=== PATIENT | female | born 1960 | race Caucasian/White ===

== ENCOUNTER 2019-09-15 10:18 | Outpatient (CLI) | payer OTHER, SELFPAY ==
--- NOTE | ~2019-09-15 | XR_ITS ---
EXAMINATION: XR nasal bones min 3V DATE: 09/15/2019 10:49 INDICATION: Nose injury and pain. TECHNIQUE: 3 views of the nasal bones were obtained. COMPARISON: None. FINDINGS: Bone alignment is normal. There are nondisplaced transverse fractures of the nasal bones. T he nasal septum is at midline. IMPRESSION: 1. Nondisplaced transverse fractures of the nasal bones. Reviewed, dictated and finalized at location E.
== END 2019-09-15 10:19 | disposition home or self-care (01) ==
PROVIDERS: PCP Internal Medicine; Visit Provider Internal Medicine
DX: S02.2XXA Fracture of nasal bones, initial encounter for closed fracture (principal)
CPT/HCPCS: 70160

== ENCOUNTER 2020-02-01 08:26 | Outpatient (CLI) | payer OTHER, SELFPAY ==
--- NOTE | ~2020-02-01 | MM_ITS ---
EXAMINATION: MM screening [facility] BI w darren HISTORY: Screening TECHNIQUE: Craniocaudal and mediolateral oblique 3-D tomosynthesis images were obtained and synthetic 2-D images were generated. CAD analysis was submitted and interpreted. COMPARISON: Comparison to multiple prior studies sequentially, with oldest reviewed study dated 11/24. BREAST PARENCHYMAL COMPOSITION: The breasts are heterogeneously dense, which may obscure small masses . FINDINGS: There is no evidence of suspicious mass, calcification, or architectural distortion to sugg est malignancy in either breast. There has been no suspicious interval change. IMPRESSION: 1. No mammographic evidence of malignancy. 2. Recommend routine screening mammography in one year. BI-RADS Category 1: Negative Reviewed, dictated and finalized at location A.
== END 2020-02-01 08:27 | disposition home or self-care (01) ==
LOC: CHSIMG 08:28
PROVIDERS: PCP Internal Medicine; Visit Provider Internal Medicine
DX: Z12.31 Encounter for screening mammogram for malignant neoplasm of breast (principal)
CPT/HCPCS: 77063; 77067

== ENCOUNTER 2020-04-07 07:37 | Outpatient (CLI) | payer OTHER, SELFPAY ==
--- NOTE | ~2020-04-07 | US_ITS ---
EXAMINATION: US retroperitoneal duplex ltd DATE: 04/07/2020 11:43 INDICATION: Renal hypertension TECHNIQUE: Multiple grayscale, color Doppler, and pulsed Doppler images of the kidneys and renal kalyn janny were obtained. COMPARISON: None. FINDINGS: The aorta peak systolic velocity is 68 cm/s. The right renal artery peak systolic velocity is 176 cm/ s in the proximal segment, 157 cm/s in the mid segment, and 219 cm/s in the distal segment. The left renal artery peak systolic velocity is 95 cm/s in the proximal segment, 82 cm/s in the mid segment, a nd 78 cm/s in the distal segment. Bilateral renal veins are patent with normal venous waveforms. IMPRESSION: 1. Elevated systolic velocities in the right renal artery consistent with a >50-60% stenosis. Reviewed, dictated and finalized at location A. MENT PROCESSING SPECIALIST IMPRESSION: 1. Elevated systolic velocities in the right renal artery consistent with a >5 0-60% stenosis.
--- NOTE | ~2020-04-07 | US_ITS ---
EXAMINATION: US abdomen complete DATE: 04/07/2020 08:52 INDICATION: Epigastric abdominal pain. TECHNIQUE: Multiple grayscale and Doppler ultrasound images of the abdomen were obtained. COMPARISON: None FINDINGS: The visualized portions of the head, body, and tail of the pancreas are normal. There are c ysts in the liver measuring up to 2.5 cm. There is normal flow in main portal vein. The inferior vena cava is normal. Abdominal aorta is normal in caliber. The gallbladder is normal in size. No gallston es or gallbladder wall thickening. There was a positive sonographic Rodriguez sign. The common duct is n ormal and measures 4 mm. Right kidney measures 16.3 x 7.9 x 9.8 cm. Left kidney measures 18.8 x 6.9 x 8.5 cm. There are numerous cysts in the kidneys, some with low level echoes, consistent with hemorrh agic cysts. There is mild splenomegaly measuring 13.1 cm. IMPRESSION: 1. Polycystic kidney disease. 2. Normal gallbladder. No etiology for the positive sonographic Rodriguez sign. 3. Mild splenomegaly. Reviewed, dictated and finalized at location B. RITY OPERATIONS ANALYST
== END 2020-04-07 07:38 | disposition home or self-care (01) ==
LOC: CHSIMG 07:38
PROVIDERS: PCP Internal Medicine; Visit Provider Internal Medicine
DX: R10.13 Epigastric pain (principal); R50.9 Fever, unspecified; I10 Essential (primary) hypertension
CPT/HCPCS: 76700; 93976

== ENCOUNTER 2020-08-09 08:05 | Outpatient (CLI) | payer OTHER, SELFPAY ==
--- NOTE | ~2020-08-09 | CT_ITS ---
EXAMINATION: CT abdomen pelvis w con DATE: 08/09/2020 08:46 INDICATION: Generalized abdominal pain. Nausea. TECHNIQUE: Computed tomography (CT) of the abdomen and pelvis was performed with 100 mL Omnipaque 350 intravenous contrast. Automated exposure control and iterative reconstruction technique were employe d. The dose-length product was 201.25 mGy-cm. COMPARISON: Ultrasound 04/07/2020 FINDINGS: The visualized portions of the lung bases demonstrate minimal atelectasis. No pleural effus ion. The heart size is normal. No pericardial effusion. There are innumerable cysts in the liver bernadine uring up to 3.2 cm. There are some dystrophic calcifications in the liver. There are innumerable cyst s in the kidneys measuring up to 5.4 cm on the left. A 4 mm calcification in right kidney may be a pa renchymal calcification. The spleen, pancreas, and adrenal glands are normal. There are no dilated lo ops of bowel. The appendix is not visualized. There are no pathologically enlarged lymph nodes. There is trace pelvic ascites. There is mild lumbar spondylosis. IMPRESSION: 1. Polycystic kidney disease. Reviewed, dictated and finalized at location A.
[2020-08-09 08:25] LABS: Estimated Glomerular Filt Rate 39
== END 2020-08-09 08:06 | disposition home or self-care (01) ==
LOC: CHSIMG 08:07
PROVIDERS: PCP Internal Medicine; Visit Provider Internal Medicine
DX: R10.9 Unspecified abdominal pain (principal); R11.0 Nausea
CPT/HCPCS: 74177; Q9967

== ENCOUNTER 2021-02-02 08:56 | Outpatient (CLI) | payer OTHER, SELFPAY ==
--- NOTE | ~2021-02-02 | MM_ITS ---
EXAMINATION: MM screening [facility] BI w darren HISTORY: Screening mammogram TECHNIQUE: Craniocaudal and mediolateral oblique 3-D tomosynthesis images were obtained and synthetic 2-D images were generated. CAD analysis was submitted and interpreted. COMPARISON: 02/01/2020, 01/27/2019, 01/20/2018 BREAST PARENCHYMAL COMPOSITION: The breasts are heterogeneously dense, which may obscure small masses . FINDINGS: There is no evidence of suspicious mass, calcification, or architectural distortion to sugg est malignancy in either breast. There has been no suspicious interval change. IMPRESSION: 1. No mammographic evidence of malignancy. 2. Recommend routine screening mammography in one year. BI-RADS Category 1: Negative Reviewed, dictated and finalized at location A.
== END 2021-02-02 08:57 | disposition home or self-care (01) ==
LOC: CHSIMG 08:58
PROVIDERS: PCP Internal Medicine; Visit Provider Internal Medicine
DX: Z12.31 Encounter for screening mammogram for malignant neoplasm of breast (principal)
CPT/HCPCS: 77063; 77067

== ENCOUNTER 2022-02-05 07:51 | Outpatient (CLI) | payer OTHER, SELFPAY ==
--- NOTE | ~2022-02-05 | DEXA_ITS ---
Bone Density Report Name: ALBERTO HARRIS Age: 61 Sex: Female Ethnicity: White Date of : 1960 Indication: postmenopausal; screening for osteoporosis; height loss; end stage renal disease; hysterectomy; Referring Provider: Luci Monterroso Study: Bone densitometry was performed. Exam Date: February 05, 2022 Accession number: [id number] Bone Density: Region BMD T-score Z-score Classification AP Spine(L1, L2, L3) 0.979 -0.4 1.0 Normal Femoral Neck (Left) 0.840 -0.1 1.2 Normal Total Hip (Left) 0.998 0.5 1.4 Normal Femoral Neck (Right) 0.879 0.3 1.5 Normal Total Hip (Right) 0.962 0.2 1.1 Normal Femoral Neck Mean 0.860 0.1 1.4 Normal Total Hip Mean 0.980 0.3 1.2 Normal World Health Organization criteria for BMD impression classify patients as: Normal (T-score at or above -1.0), Osteopenia (T-score between -1.0 and -2.5), or Osteoporosis (T-score at or below -2.5). 10-year Fracture Risk: FRAX not reported because: All T-scores for Spine Total, Hip Total, Femoral Neck at or above -1.0 Clinical Information Provided by Patient: Has the following medical conditions: End stage renal disease, Hysterectomy Patient maximum height was 64 Menopause Age: 40 Does not regularly consume dairy products Drinks caffeinated beverages Onset of menses at age 13 Number of children 3 Impression: The patient has normal bone mass. Discussion: BONE DENSITY IS ABOVE THE MINIMUM DESIRABLE LEVEL AT ALL SKELETAL SITES TESTED. This patient?s bone mineral density is above the minimum desirable level (T-score -1.0 or better) at all sites measured. The patient should follow a healthful lifestyle (good nutrition with adequate calcium and vitamin D, and appropriate weight-bearing exercise). Follow-Up: Consider repeating this study in 5 years or sooner if there is some new clinical indication. Reported by: Dr. Stephen Hdz on 02/05/2022 8:24:00 AM. Reviewed, dictated and finalized at location A. [facility]
--- NOTE | ~2022-02-05 | MM_ITS ---
EXAMINATION: MM screening [facility]io BI w darren HISTORY: Screening TECHNIQUE: Craniocaudal and mediolateral oblique 3-D tomosynthesis images were obtained and synthetic 2-D images were generated. CAD analysis was submitted and interpreted. COMPARISON: Comparison to multiple prior studies sequentially, with oldest reviewed study dated 12/07. BREAST PARENCHYMAL COMPOSITION: The breasts are heterogeneously dense, which may obscure small masses . FINDINGS: There is no evidence of suspicious mass, calcification, or architectural distortion to sugg est malignancy in either breast. There has been no suspicious interval change. IMPRESSION: 1. No mammographic evidence of malignancy. 2. Recommend routine screening mammography in one year. BI-RADS Category 1: Negative Reviewed, dictated and finalized at location A.
== END 2022-02-05 07:52 | disposition home or self-care (01) ==
LOC: CHSIMG 07:53
PROVIDERS: PCP Internal Medicine; Visit Provider Internal Medicine
DX: Z12.31 Encounter for screening mammogram for malignant neoplasm of breast (principal); M81.0 Age-related osteoporosis without current pathological fracture
CPT/HCPCS: 77063; 77067; 77080

== ENCOUNTER 2023-02-08 12:04 | Outpatient (CLI) | payer OTHER, SELFPAY ==
--- NOTE | ~2023-02-08 | MM_ITS ---
EXAMINATION: MM screening antonio BI w darren HISTORY: Screening mammogram TECHNIQUE: Craniocaudal and mediolateral oblique 3-D tomosynthesis images were obtained and synthetic 2-D images were generated. CAD analysis was submitted and interpreted. COMPARISON: 02/05/2022, 02/02/2021, 02/01/2020 bilateral screening mammogram examinations BREAST PARENCHYMAL COMPOSITION: The breasts are heterogeneously dense, which may obscure small masses . FINDINGS: There is a biopsy marker in each breast; history of prior bilateral benign breast biopsies. There is no evidence of suspicious mass, calcification, or architectural distortion to suggest malig miquel in either breast. There has been no suspicious interval change. IMPRESSION: 1. No mammographic evidence of malignancy. 2. Recommend routine screening mammography in one year. BI-RADS Category 1: Negative Reviewed, dictated and finalized at location A.
== END 2023-02-08 12:05 | disposition home or self-care (01) ==
LOC: CHSIMG 12:06
PROVIDERS: PCP Internal Medicine; Visit Provider Internal Medicine
DX: Z12.31 Encounter for screening mammogram for malignant neoplasm of breast (principal)
CPT/HCPCS: 77063; 77067

== ENCOUNTER 2023-08-02 12:33 | Outpatient (CLI) | payer OTHER, SELFPAY | END 2023-08-02 12:34 | disposition home or self-care (01) | LOC: ANHAUDASC 12:34 | PROVIDERS: PCP Internal Medicine; Visit Provider Otolaryngology | DX: H90.0 Conductive hearing loss, bilateral (principal); H93.A3 Pulsatile tinnitus, bilateral; H65.493 Other chronic nonsuppurative otitis media, bilateral | CPT/HCPCS: 92557; 92567 ==

== ENCOUNTER 2023-08-29 09:45 | Outpatient (CLI) | payer OTHER, SELFPAY ==
--- NOTE | 2023-10-07 08:59 | WPDHOLTEREM ---
Holter/Event Monitor Holter/Event Monitor Date of procedure: 08/29/23 Holter/Event Procedure: Event Monitor Indications: Palpitations Conclusion: 1. 28 days event monitor between 08/29/23-09/27/23. There are 16 available transmissions for analysis. 2. Underlying rhythm is sinus rhythm. HR range 50-114 bpm; average 63 bpm. 3. No premature supraventricular complexes. No supraventricular tachycardia. 4. There are occasional premature ventricular complexes. No ventricular tachycardia. 5. No significant pauses greater than 2 seconds. 6. Patient reports 1 episode of symptom other than listed which demonstrate sinus rhythm at 63 bpm.
== END 2023-08-29 09:46 | disposition home or self-care (01) ==
LOC: CHSCARD 09:48
PROVIDERS: PCP Internal Medicine; Visit Provider Internal Medicine
DX: R00.2 Palpitations (principal)
CPT/HCPCS: 93270

== ENCOUNTER 2023-10-14 09:46 | Outpatient (CLI) | payer OTHER, SELFPAY ==
[2023-10-14 10:56] LABS: Anion Gap 6 mmol/L (4-12); Blood Urea Nitrogen 23 mg/dL (7-17); Calcium 9.5 mg/dL (8.4-10.2); Carbon Dioxide 28 mmol/L (22-30); Chloride 102 mmol/L (98-107); Estimated Glomerular Filt Rate 46; Glucose 98 mg/dL (65-110); Potassium 4.1 mmol/L (3.4-5.0); Sodium 136 mmol/L (137-145)
== END 2023-10-14 09:47 | disposition home or self-care (01) ==
PROVIDERS: Anesthesiology; PCP Internal Medicine; Visit Provider Otolaryngology
DX: Z01.818 Encounter for other preprocedural examination (principal); Z79.899 Other long term (current) drug therapy
CPT/HCPCS: 36415; 80048

== ENCOUNTER 2023-10-18 00:14 | Day surgery (SDC) | payer OTHER, SELFPAY ==
[2023-10-09 14:37] VITALS: BMI 23.2
--- NOTE | 2023-10-09 15:03 | SUR.PREOP ---
Report to the Outpatient Waiting Room, entrance under the green pavilion located off [facility], at time 0600 on date 10/18/2023. Planned Procedure Time: 0800. Time changes happen often and if your time is changed the preop area will call you the afternoon before. - You and your visitor will be asked to self-screen and do not enter if you have any COVID symptoms. - A mask is optional within the hospital at this time. Patients may have clear liquids (water, carbonated beverages, clear teas, apple juice) until 3 hours prior to surgery with a maximum of 20 ounces. - No food from midnight until time of surgery - Infants may have breast milk until 4 hours before surgery, formula 6 hours prior to surgery. - Children will be allowed to drink immediately following surgery. If applicable, please bring a bottle or sippy cup to assist with drinking. Juice, water, soda, and popsicles are readily available. For infants on formula, please bring formula the day of surgery. Pacifiers are allowed. Take the following medications with a SIP of water the morning of surgery: Norvasc DO NOT STOP ANY OF YOUR OTHER PRESCRIPTION MEDICATIONS PRIOR TO SURGERY ?EXCEPT THE FOLLOWING Medications to discontinue per physician NA Please no make-up, nail samoan, hairspray, perfume, deodorant, or body powder the day of surgery. No jewelry (including any body piercings) or valuables the day of surgery, leave them at home. Please take a shower or bath the night before, or the morning of, surgery with an antibacterial soap. Wear comfortable, loose fitting clothing. Children are encouraged to wear pajamas. - Jewelry must be removed prior to entering the operating room. Rings and piercings that are not removed may be cut off. - The hospital will not accept responsibility for valuables. - Please leave all valuables, including medications, at home the day of surgery. If you are going home after surgery, a licensed rear load truck driver must drive you home. - NO public transportation without another adult if you receive anesthesia. - We recommend that an adult stay with you for 24 hours following discharge. - We also recommend that you do not drive, make important decision, drink alcoholic beverages, or take any drugs that were not prescribed by your health care provider for at least 24 hours after your discharge time. For Pediatric surgeries, we recommend two adults accompany the child home. Follow any additional instructions given to you from your surgeon. If you or anyone in your household have experienced Covid symptoms in the past week, please notify your surgeon or the nurse liaison at the phone number below for possible testing. Telephone instructions given to ____Patient and asked if any additional questions and then verbalized understanding. Patient advised to call surgeon office or pre surgery nurse liaison [phone] if any additional questions.
--- NOTE | 2023-10-17 07:47 | PM.IMHP ---
H&P: HPI History of Present Illness Date/Time: 10/17/23 07:47 Chief Complaint: Chronic otitis media Narrative: planned surgical procedure Review of Systems Review of Systems: All systems reviewed & are unremarkable except as noted in HPI and below [facility] Family History Family History Father Heart disease Mother Hypertension Sibling Hypertension Other Hypertension Social History Social History Smoking status: Never smoker Alcohol intake: former Substance use: never Substance use type: does not use Do You Feel Safe in your Home?: Yes Lack of Transportation: No Lack of Food: Never True Current Housing: I Have Housing Concerned About Future Housing: No Difficulty Paying Gas/Electric Bills: No Difficulty Paying for Meds: No Currently Unemployed: No Education: Decline to Answer Difficulty w/ Childcare or Family Care: No Living arrangements: with family Spiritual care concerns: No Meds Home Medications and Allergies Home Medications Medication Instructions Recorded Confirmed Type amlodipine 5 mg tablet 5 mg PO DAILY 07/16/23 10/09/23 History bisoprolol fumarate 5 mg tablet 5 mg PO DAILY 07/16/23 10/09/23 History fosinopril 40 mg tablet 40 mg PO DAILY 08/27/23 10/09/23 History amlodipine 2.5 mg tablet 2.5 mg PO PRN PRN Hypertension 10/09/23 10/09/23 History furosemide 20 mg tablet 20 mg PO DAILY 10/09/23 10/09/23 History potassium chloride 10 mEq 10 meq PO DAILY 10/09/23 10/09/23 History tablet,extended release Allergies Allergy/AdvReac Type Severity Reaction Status Date / Time No Known Allergies Allergy Verified 10/09/23 14:33 Exam Narrative: fluid both sides Assessment and Plan Assessment and plan (1) Chronic otitis media with effusion: Code(s): H65.499 - Other chronic nonsuppurative otitis media, unspecified ear Status: Acute Assessment and Plan: plan or bilateral myringotomy tube insertion would just collar buttons. Risks discussed bleeding infection damage to surrounding structures need further procedures failure to resolve symptoms persistent otorrhea possible need for referral do neuro hospitalist nocturnist physician. 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 Patient voiced understanding these risks and agreed. Also discussed damage any structures of the clavicle by myself damage to any structure in during mask ventilation and oral and insertion of LMA by Anesthesia
[2023-10-18] VITALS (8 sets, daily range): BP systolic 108–146; BP diastolic 56–84; PULSE 53–70; RESP 12–18; TEMP 36.2–36.5; O2SAT 95–100
--- NOTE | 2023-10-18 05:56 | ECG_ITS ---
Test Date: 2023-10-18 06:42:57 Measurements Intervals [place] Rate: 55 P: 26 TN: 198 QRS: 36 QRSD: 85 T: 36 QT: 407 QTc: 390 Interpretive Statements SINUS BRADYCARDIA OTHERWISE NORMAL ECG No previous ECG available for comparison Electronically Signed On 10-18-2023 10:57:33 CDT by Ion Ewing M.D.
--- NOTE | 2023-10-18 06:46 | P.PNAN_ITS ---
Anes - Initial Pre Proc Eval Procedure: Operation Date: 10/18/23 07:30 Proposed Procedures p Bilateral Myringotomy, Insertion Of Tubes - Merlin Reddy MD Date/Time: 10/18/23 06:46 Surgeon: Merlin Reddy MD Pre Op Diagnosis: chronic otitis media Patient Data Age: 63 Gender: F Height: 1.63 m Weight: 61.36 kg Allergies Allergy/AdvReac Type Severity Reaction Status Date / Time No Known Allergies Allergy Verified 10/09/23 14:33 Home Medications Medication Instructions Recorded Confirmed Type amlodipine 5 mg tablet 5 mg PO DAILY 07/16/23 10/09/23 History bisoprolol fumarate 5 mg tablet 5 mg PO DAILY 07/16/23 10/09/23 History fosinopril 40 mg tablet 40 mg PO DAILY 08/27/23 10/09/23 History amlodipine 2.5 mg tablet 2.5 mg PO PRN PRN Hypertension 10/09/23 10/09/23 History furosemide 20 mg tablet 20 mg PO DAILY 10/09/23 10/09/23 History potassium chloride 10 mEq 10 meq PO DAILY 10/09/23 10/09/23 History tablet,extended release Patient hx anesthesia problems: none Family hx anesthesia problems: none Results Review: All pre-operative results and documents have been reviewed as part of the pre- operative evaluation. [facility] Family History Family History Father Heart disease Mother Hypertension Sibling Hypertension Other Hypertension Social History Social History Smoking status: Never smoker Alcohol intake: former Substance use: never Substance use type: does not use Do You Feel Safe in your Home?: Yes Lack of Transportation: No Lack of Food: Never True Current Housing: I Have Housing Concerned About Future Housing: No Difficulty Paying Gas/Electric Bills: No Difficulty Paying for Meds: No Currently Unemployed: No Education: Decline to Answer Difficulty w/ Childcare or Family Care: No Living arrangements: with family Spiritual care concerns: No Anes - Eval Final PreProcedure Day of Procedure 10/18/23 06:46 Patient weight: normal Heart: regular rate and rhythm Lungs: clear to auscultation Airway: Mallampati scale class II Neurological: alert and oriented Last oral intake: >/= 8 hours ASA classification: II Emergent: no Anesthetic plan: proceed Anesthesia type and monitoring: general LMA and standard monitoring Results Review: All pre-operative results and documents have been reviewed as part of the pre- operative evaluation. HTN, pt walks daily approx 3 miles. EKG NSR, SB. Informed Consent: The patient's anesthetic plan and its attendant risks and benefits were discussed with the patient/family/POA. Questions were solicited and answers provided to the satisfaction of the patient/family/POA.
[2023-10-18] MEDS: LACTATED RINGERS 1,000 ML 30 ML IV CONT (06:50)
--- NOTE | 2023-10-18 07:14 | WPDHPUPDATE1 ---
History and Physical Update Update Date/Time: 10/18/23 07:14 History and Physical has been reviewed, including an updated exam of the patient. There are NO changes in the patient's condition. Risks, benefits, and alternatives have been discussed and questions answered. Patient agrees to proceed with procedure.
[2023-10-18] MEDS: CIPROFLOXACIN HCL 0.3% OP SOLN 2.5 ML BTL 4 DROP EACH EAR (07:29)
[2023-10-18] MEDS: OXYMETAZOLINE HCL 0.05% NAS 15 ML BTL (*BKC) 1 SPRAY NASAL (07:41)
--- NOTE | 2023-10-18 07:57 | P.OP_ITS ---
Procedure Note - Detailed Date of Procedure 10/18/23 Pre-op Diagnosis chronic otitis media Post-op Diagnosis Same Procedure Performed Bilateral myringotomy tube insertion Surgeon Merlin Reddy MD Anesthesia General Indications see above Findings left-sided moderate amount of fluid difficult to insert a lot of myringosclerosis had to make 2 incisions in the tympanic membrane tube placed successfully several drops of blood on the left side right-sided normal ins ertion no fluid aerated middle ear Description of Procedure patient identified consent verified preop. Patient brought operating. Time- out performed. General anesthesia induced LMA secured. Patient prepped draped position. Procedure confirmed. Second time-out performed. [place] microscope brought on the field very narrow EAC cerumen removed right-sided myringotomy made aerated middle ear collar-button tube placed collar button tube placed drops placed. Left-sided viewed cerumen removed even narrower EAC. Had to dilate with a pediatric speculum up to a small adult size bleed 2. Initial myringotomy made in the anterior-inferior quadrant difficult to make a complete myringotomy given the degree of myringosclerosis which was less evident prior to myringotomy. Decision made to perform 2nd myringotomy posteriorly myringotomy made tube inserted. Patient tolerated the procedure well blood loss about 1 cc. Afrin was placed intraoperative. Piece of cotton was also used to catch any blood. The cotton was inadvertently left in the ear canal and removed in PACU successfully using a pediatric endoscope. I polyp GIs profusely to the . No adverse consequences from the very small piece of cotton that was in the ear canal. The ear canal looked really good postoperatively as well. And tube. Patient tolerated the procedure well no complications. Estimated Blood Loss 1 Drains No Packing No Pathology Yes Complications No immediate complications Condition Stable Disposition PACU [facility] Billing Surgery - Charge Forward: Surgery Billing
[2023-10-18] MEDS: fentaNYL CITRATE INJ (*CRX) 100 MCG/2 ML VIAL 25 MCG IV PUSH (08:29)
[2023-10-18] MEDS: oxyCODONE HCL (*CRX) 5 MG TAB IR PO (09:25)
== END 2023-10-18 10:00 | disposition home or self-care (01) ==
PROVIDERS: PCP Internal Medicine; Visit Provider Otolaryngology
PROC: (CPT 69436; principal; 2023-10-18 07:30)
DX: H65.493 Other chronic nonsuppurative otitis media, bilateral (principal); Z82.49 Family history of ischemic heart disease and other diseases of the circulatory system
CPT/HCPCS: 69436; 36415; 80048; 93005; A9270; J1100; J2250; J2405; J2704; J3010; J7120

== ENCOUNTER 2024-02-11 11:37 | Outpatient (CLI) | payer OTHER, SELFPAY ==
--- NOTE | ~2024-02-11 | MM_ITS ---
EXAMINATION: MM screening [facility] BI w darren HISTORY: Screening TECHNIQUE: Craniocaudal and mediolateral oblique 3-D tomosynthesis images were obtained and synthetic 2-D images were generated. CAD analysis was submitted and interpreted. COMPARISON: Comparison to multiple prior studies sequentially, with oldest reviewed study dated 01/20. BREAST PARENCHYMAL COMPOSITION: Dense: The breasts are heterogeneously dense, which may obscure small masses FINDINGS: There is no evidence of suspicious mass, calcification, or architectural distortion to sugg est malignancy in either breast. There has been no suspicious interval change. IMPRESSION: 1. No mammographic evidence of malignancy. 2. Recommend routine screening mammography in one year. BI-RADS Category 1: Negative Reviewed, dictated and finalized at location B.
== END 2024-02-11 11:38 | disposition home or self-care (01) ==
LOC: CHSIMG 11:38
PROVIDERS: PCP Internal Medicine; Visit Provider Internal Medicine
DX: Z12.31 Encounter for screening mammogram for malignant neoplasm of breast (principal)
CPT/HCPCS: 77063; 77067

== ENCOUNTER 2025-02-02 09:40 | Outpatient (CLI) | payer OTHER, SELFPAY ==
--- NOTE | ~2025-02-02 | MM_ITS ---
EXAMINATION: MM screening antonio BI w darren HISTORY: Screening TECHNIQUE: Craniocaudal and mediolateral oblique 3-D tomosynthesis images were obtained and synthetic 2-D images were generated. CAD analysis was submitted and interpreted. COMPARISON: Comparison to multiple prior studies sequentially, with oldest reviewed study dated , 01/27/2019 BREAST PARENCHYMAL COMPOSITION: The breasts are heterogeneously dense, which may obscure small masses. FINDINGS: There is no evidence of suspicious mass, calcification, or architectural distortion to suggest malignancy in either breast. IMPRESSION: 1. No mammographic evidence of malignancy. 2. Recommend routine screening mammography in one year. BI-RADS Category 1: Negative Reviewed, dictated and finalized at location B.
--- NOTE | ~2025-02-02 | DEXA_ITS ---
Bone Density Report Name: ALBERTO HARRIS Age: 64 Sex: Female Ethnicity: White Date of : 1960 Indication: postmenopausal; screening for osteoporosis; end stage renal disease; hysterectomy; Referring Provider: Luci Monterroso Study: Bone densitometry was performed. Exam Date: February 02, 2025 Accession number: [id number] Bone Density: Region BMD T-score Z-score Classification AP Spine(L1, L2, L3) 0.959 -0.5 1.0 Normal Femoral Neck (Left) 0.833 -0.1 1.3 Normal Total Hip (Left) 1.063 1.0 2.1 Normal Femoral Neck (Right) 0.843 -0.1 1.4 Normal Total Hip (Right) 1.017 0.6 1.7 Normal Femoral Neck Mean 0.838 -0.1 1.3 Normal Total Hip Mean 1.040 0.8 1.9 Normal World Health Organization criteria for BMD impression classify patients as: Normal (T-score at or above -1.0), Osteopenia (T-score between -1.0 and -2.5), or Osteoporosis (T-score at or below -2.5). 10-year Fracture Risk: FRAX not reported because: All T-scores for Spine Total, Hip Total, Femoral Neck at or above -1.0 Previous Exams: Region Exam Age BMD T-score BMD Change BMD Change Date g/cm2 vs Baseline vs Previous AP Spine (L1-L3) 02/02/2025 64 0.959 -0.5 -0.021 (-2.1%) -0.021 (-2.1%) 02/05/2022 61 0.979 -0.4 Total Hip(Left) 02/02/2025 64 1.063 1.0 0.064 (6.5%)* 0.064 (6.5%)* 02/05/2022 61 0.998 0.5 Total Hip(Right) 02/02/2025 64 1.017 0.6 0.056 (5.8%)* 0.056 (5.8%)* 02/05/2022 61 0.962 0.2 *Denotes significance at 95% confidence level, LSC for AP Spine = 0.022 g/cm2, LSC for Total Hip = 0.027 g/cm2 Clinical Information Provided by Patient: Has the following medical conditions: End stage renal disease, Hysterectomy Patient maximum height was 64.5 Menopause Age: 40 Drinks caffeinated beverages Onset of menses at age 13 Number of children 3 Impression: The patient has normal bone mass. No significant bone loss was observed. Discussion: BONE DENSITY IS ABOVE THE MINIMUM DESIRABLE LEVEL AT ALL SKELETAL SITES TESTED. This patient?s bone mineral density is above the minimum desirable level (T-score -1.0 or better) at all sites measured. The patient should follow a healthful lifestyle (good nutrition with adequate calcium and vitamin D, and appropriate weight-bearing exercise). Follow-Up: Consider repeating this study in 5 years or sooner if there is some new clinical indication. Reported by: SEAN on 02/02/2025 10:04:00 AM. Reviewed, dictated and finalized at location A.
--- OUTSIDE RECORDS SUMMARY | 2025-02-02 10:17 | XMS_ITS | Encounter Summary ---
Author Organization [facility] Address [address] [place] [address] Care Team Providers Care Senior Payroll Administrator Name Role Phone Luci Monterroso MD Primary Care Provider [phone] Gonzales Sarabia MD Unavailable Unavailable Jo Yoon NP Unavailable [phone] Encounter Details Date Type Department Care Team (Late st Contact Info) Description 04/20/2020 [facility] [address] [place] [id number] Abstract, Doc [facility] Social History Tobacco Use Types Packs/Day Years Used Date Smoking Tobacco: Never Smokeless Tobacco: Never Alcohol Use Standard Drinks/Week Comments Yes 0 (1 standard drink = 0.6 oz pur e alcohol) glass of wine once a week Comments Unknown Sex and Gender Information Value Date Recorded Sex Assigned at Not on file Legal Sex Female 9:50 PM SPECIAL NEEDS CAREGIVER Gender Identity Not on file Sexual Orientation Not on file COVID-19 Exposure Response Date Recorded In the last month, have you been in contact with someone who was confirmed or suspected to have Coronavirus / COVID-19? No / Unsure 04/18/2020 10:29 AM SPECIAL NEEDS CAREGIVER documented as of this encounter Plan of Treatment Not on file documented as of this encounter Procedures Procedure Name Priority Date/Time Associated Diagnosis Comments LIPID PANEL Routine 04/15/2020 documented in this encounter Results * LIPID PANEL (04/15/2020) CHOLESTEROL 209 HDL 63 TRIGLYCERIDES 89 NON HDL CHOLESTEROL 146 CHOL/HDL RATIO 3.3 LDL (CALCULATED) 127 04/15/2020 Luci Monterroso MD LABORATORY Final Result documented in this encounter Visit Diagnoses Not on filedocumented in this encounter Care Teams Senior Payroll Administrator Relationship Specialty Start Date End Date Luci Monterroso MD [address] [place] [id number] PCP - General INTERNAL MEDICINE 04/13/20 Gonzales Sarabia MD [address] [place] [address] Consulting Physician INTERVENTIONAL CARDIOLOGY 04/13/20 Jo Yoon NP Robbie [facility] [id number] [place] [id number] Nurse Practitioner Nurse Practitioner Family 04/13/20 documented as of this encounter
--- OUTSIDE RECORDS SUMMARY | 2025-02-02 10:17 | XMS_ITS | Encounter Summary ---
Author Organization [facility] Address [address] [place] [address] Care Team Providers Care Statistics Manager Name Role Phone Luci Monterroso MD Primary Care Provider Gonzales Sarabia MD Unavailable Unavailable Jo Yoon EFFICIENCY CLERK Unavailable [phone] Encounter Details Date Type Department Care Team (Late st Contact Info) Description 04/14/2020 [facility] [address] [place] [id number] Lenard Truong MD Social History Tobacco Use Types Packs/Day Years Used Date Smoking Tobacco: Never Smokeless Tobacco: Never Alcohol Use Standard Drinks/Week Comments Yes 0 (1 standard drink = 0.6 oz pur e alcohol) glass of wine once a week Comments Unknown Sex and Gender Information Value Date Recorded Sex Assigned at Not on file 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 Gender Identity Not on file Sexual Orientation Not on file documented as of this encounter Plan of Treatment Not on file documented as of this encounter Visit Diagnoses Not on filedocumented in this encounter Care Teams Statistics Manager Relationship Specialty Start Date End Date Luci Monterroso MD [address] [place] [address] PCP - General INTERNAL MEDICINE 04/13/20 Gonzales Sarabia MD [address] [place] [address] Consulting Physician INTERVENTIONAL CARDIOLOGY 04/13/20 Jo Yoon NP Robbie [facility] [address] [place] [id number] Nurse Practitioner Nurse Practitioner Family 04/13/20 documented as of this encounter
--- OUTSIDE RECORDS SUMMARY | 2025-02-02 10:17 | XMS_ITS | Clinical Summary ---
Author Organization [facility] Address [address] [place] [address] Care Team Providers Care House Superintendent Name Role Phone Luci Monterroso MD Primary Care Provider [phone] Gonzales Sarabia MD Unavailable Unavailable Jo Yoon NP Unavailable [phone] Medications fosinopril 40 MG tablet Take 40 mg by mouth daily. Active bisoprolol 5 MG tablet Take 5 mg by mouth daily. Active Active Problems Problem Noted Date Diagnosed Date Renal artery stenosis 04/18/2020 Family History Medical History Relation Comments Kidney Disease Child polycystic kidne y disease Coronary artery disease Father Diabetes Father Diabetes Mother Kidney Disease Mother polycystic kidne y disease Colon Cancer Other Kidney Disease Sister polycystic kidne y disease, renal failure, s/p transplant Thyroid Disease Sister hypothyroidism Relation Status Comments Brother 1 Brother 2 Alive Child Alive Father Maternal Grandfather Maternal Grandmother Mother Alive Other Paternal Grandfather Paternal Grandmother Sister Alive Social History Tobacco Use Types Packs/Day Years Used Date Smoking Tobacco: Never Smokeless Tobacco: Never Alcohol Use Standard Drinks/Week Comments Yes 0 (1 standard drink = 0.6 oz pur e alcohol) glass of wine once a week Comments Unknown Sex and Gender Information Value Date Recorded Sex Assigned at Not on file 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 Gender Identity Not on file Sexual Orientation Not on file Last Filed Vital Signs Vital Sign Reading Time Taken Comments Blood Pressure 128/88 04/18/2020 10:57 AM HAZARDOUS MATERIALS TANKER DRIVER Pulse 60 04/18/2020 10:56 AM HAZARDOUS MATERIALS TANKER DRIVER Temperature - - Respiratory Rate 16 04/18/2020 10:56 AM HAZARDOUS MATERIALS TANKER DRIVER Oxygen Saturation - - Inhaled Oxygen Concentration - - Weight 56.7 kg (125 lb) 04/18/2020 10:56 AM HAZARDOUS MATERIALS TANKER DRIVER Height 163.8 cm (5' 4.5) 04/18/2020 10:56 AM CS T Body Mass Index 21.12 04/18/2020 10:56 AM HAZARDOUS MATERIALS TANKER DRIVER Plan of Treatment Health Maintenance Due Date Last Done Comments ASCVD Statin 1960 Colorectal Cancer Screening Colonoscopy (10 Years) 1962 Annual Physical 1965 Hepatitis C 1980 DTaP, Tdap and Td Vaccines ( 1 - Tdap) 1981 Mammogram Screening 2002 Pneumococcal Vaccine: 50+ Ye ars (1 of 1 - PCV) 2012 Zoster Vaccines (1 of 2) 2012 ASCVD LDL 04/15/2021 04/15/2020 COVID-19 Vaccine (1 - 2023-2 5 season) 2024 RSV Immunization or 60+ Years (1 - 1-dose 75+ series) 2037 Meningococcal B Vaccine Aged Out No l onger eligible based on patient's age to complete this topic Meningococcal Vaccine Aged Out No zakiya james eligible based on patient's age to complete this topic RSV Immunizations Under 20 Months Aged Out No longer eligible based on patient's age to complete this topic Procedures Procedure Name Priority Date/Time Associated Diagnosis Comments LIPID PANEL Routine 04/15/2020 from Last 3 Months or Most Recently Relevant to Health Maintenance Results * LIPID PANEL (04/15/2020) CHOLESTEROL 209 HDL 63 TRIGLYCERIDES 89 NON HDL CHOLESTEROL 146 CHOL/HDL RATIO 3.3 LDL (CALCULATED) 127 04/15/2020 Luci Monterroso MD LABORATORY Final Result from Last 3 Months or Most Recently Relevant to Health Maintenance Insurance [employer] Care Teams House Superintendent Relationship Specialty Start Date End Date Luci Monterroso MD [address] [place] [address] PCP - General INTERNAL MEDICINE 04/13/20 Gonzales Sarabia MD [address] [place] [address] Consulting Physician INTERVENTIONAL CARDIOLOGY 04/13/20 Jo Yoon NP Juliane Sandra [facility] [address] [place] [phone] Nurse Practitioner Nurse Practitioner Family 04/13/20
== END 2025-02-02 09:41 | disposition home or self-care (01) ==
PROVIDERS: PCP Internal Medicine; Visit Provider Internal Medicine
DX: Z12.31 Encounter for screening mammogram for malignant neoplasm of breast (principal); Z78.0 Asymptomatic menopausal state
CPT/HCPCS: 77063; 77067; 77080